=== PATIENT | male | born 1985 | race Caucasian/White ===

== ENCOUNTER 2018-11-12 07:14 | Day surgery (SDC) | payer OTHER ==
[2018-11-10 15:42] LABS: BASOPHILS % (AUTO) 0.4 % (0-1); EOSINOPHILS # (AUTO) 0.4 X10'3 (0-0.9); EOSINOPHILS % (AUTO) 3.4 % (0-6); LYMPHOCYTES # (AUTO) 2.6 X10'3 (1.1-4.8); LYMPHOCYTES % (AUTO) 24.1 % (21-51); MEAN CORPUSCULAR HEMOGLOBIN 30.4 PG (27.0-31.0); MEAN CORPUSCULAR HGB CONC 33.2 g/dL (33.0-36.5); MEAN CORPUSCULAR VOLUME 91.4 FL (78-98); MEAN PLATELET VOLUME 9.9 FL (7.4-10.4); MONOCYTES # (AUTO) 0.8 X10'3 (0-0.9); MONOCYTES % (AUTO) 7.3 % (2-12); NEUTROPHILS % (AUTO) 64.8 % (42-75); PRE OP HEMATOCRIT 47.5 % (42.0-52.0); PRE OP HEMOGLOBIN 15.8 g/dL (14.0-17.9); PRE OP PLATELET COUNT 210 X10'3 (140-440); RED CELL DISTRIBUTION WIDTH 13.4 % (11.5-14.5)
[2018-11-10 15:47] LABS: ALBUMIN 4.2 G/DL (3.4-5.0); ALBUMIN/GLOBULIN RATIO 1.2 (1.1-1.5); ALKALINE PHOSPHATASE 83 IU/L (46-116); BLOOD UREA NITROGEN 10 MG/DL (7-18); BUN/CREATININE RATIO 12.2 (5.4-32.0); CALCIUM 9.5 MG/DL (8.5-10.1); CHLORIDE 105 MMOL/L (99-107); CREATININE 0.82 MG/DL (0.60-1.10); PRE OP ALT 19 U/L (30-65); PRE OP ANION GAP 10 (8-16); PRE OP AST 16 U/L (10-37); PRE OP BILIRUB, TOTAL 0.2 MG/DL (0.0-1.0); PRE OP GLUCOSE 85 MG/DL (70-104); PRE OP POTASSIUM 4.1 MMOL/L (3.4-5.1); PRE OP SODIUM 143 MMOL/L (135-145); TOTAL CARBON DIOXIDE 28.5 MMOL/L (24-32); TOTAL PROTEIN 7.7 G/DL (6.4-8.2); eGFR > 90 ML/MIN
[~2018-11-12] VITALS: Ht 182.9 cm; Wt 69.4 kg
[2018-11-12] VITALS (18 sets, daily range): BP systolic 108–156; BP diastolic 64–81
[~2018-11-12 07:14] MED LIST: NO HOME MEDS; cefazolin/dext.iso 2gm/50ml 50 ML IV ONE; famotidine 20mg tablet PO ONE; ringers solution, lacted 1,000 ML IV SCH
[2018-11-12] MEDS ORDERED: ceFAZolin 1000mg inj ONE (09:56)
[2018-11-12] MEDS ORDERED: BUPIVAcaine/PF 2.5mg/ml (0.25%) 10ml vial ONE (09:56)
[2018-11-12] MEDS ORDERED: ringers solution, lacted 1,000 ML IV SCH (10:03)
[2018-11-12] MEDS ORDERED: meperidine/PF 25mg/ml syringe IV PRN ×3 (10:05)
[2018-11-12] MEDS ORDERED: ondansetron/PF 4mg/2ml inj IV PRN (10:05)
[2018-11-12] MEDS ORDERED: morphine 4 MG/ML inj SYRINge IV PRN ×2 (10:05)
[2018-11-12] MEDS ORDERED: proCHLORperazine 10 MG/2 ml inj IV PRN (10:05)
[2018-11-12] MEDS ORDERED: sevoflurane 250ml liquid IH ONE (10:30)
[2018-11-12] MEDS ORDERED: midazolam 2 mg/2 ml injection ONE (10:31)
[2018-11-12] MEDS ORDERED: fentaNYL /PF 50mcg/ml 5ml ampule ONE (10:31)
[2018-11-12] MEDS ORDERED: rocuronium 10mg/ml inj IV ONE (10:31)
[2018-11-12] MEDS ORDERED: LIDOcaine 2% (20mg/ml) 5ml vial ONE (10:42)
[2018-11-12] MEDS ORDERED: propofol inj 20 ML IV ONE (10:42)
--- NOTE | 2018-11-12 11:33 | NUR ---
Received from OR via [facility] , accompanied by Anesthesiologist YARITZA and report given by Anesthesiolgist. PATIENT WITH VSS. NON VERBAL PAIN SCALE OF 0 AT THIS TIME. 2 LOW ABDOMINAL BANDAIDS PRESENT AND ARE CDI. 20G PIV IN LEFT UE RUNNING LR AT 100. PATIENT WTIH VSS AT THIS TIME. Addendum: 11/12/18 at 1202 by See Betancur RN, RN Amended: Links added.
[2018-11-12] MEDS ORDERED: dexamethasone sod phosphate 4mg/ml inj. ONE (12:01)
[2018-11-12] MEDS ORDERED: ondansetron/PF 4mg/2ml inj ONE (12:01)
[2018-11-12] MEDS ORDERED: glycopyrrolate 0.2mg/ml inj ONE (12:01)
[2018-11-12] MEDS ORDERED: neostigmine methylsulfate 1 MG/ML 10ml vial ONE (12:01)
--- NOTE | 2018-11-12 13:23 | NUR ---
Report called to receiving nurse. Transferred via [facility] WITH ALL Belongings . Special Issues communicated to receiving nurse ALONA VANG. VSS. WITH PATIENT. ALL QUESTIONS ANSWERED AND PATIENT CARE TURNED OVER TO CIERA SAGE. PATIENT STATES 3-10 PAIN. Addendum: 11/12/18 at 1332 by See Betancur RN, RN Amended: Links added.
--- NOTE | 2018-11-12 14:50 | NUR ---
PT UP TO THE BATHROOM X2 NO VOID OF YET. PT TAKING PO FLUIDS VERY WELL. PAIN CONTROLLED. BLADDER SCAN = 260ML. ADVISED PT OF POSSIBILITY OF GOING HOME WITH F/C IF HE IS UNABLE TO VOID.
--- NOTE | 2018-11-12 15:23 | NUR ---
PT VOIDED QS. PT ALREADY HAD DRESSED HIMSELF IV DC'D. TO POV VIA WC FOR DC HOME
== END 2018-11-12 15:23 | disposition home or self-care (01) ==
LOC: PAS 07:14
PROVIDERS: ATTEND Surgery
DX: K40.90 Unilateral inguinal hernia, without obstruction or gangrene, not specified as recurrent (principal); F41.9 Anxiety disorder, unspecified; F17.210 Nicotine dependence, cigarettes, uncomplicated; Z80.9 Family history of malignant neoplasm, unspecified
CPT/HCPCS: 36415; 49650; 71045; 80053; 82948; 85025; A6258; C1781; J0690; J1100; J2001; J2175; J2250; J2405; J2704; J2710; J3010; J3490; J7120; A4315; C1727

== ENCOUNTER 2024-06-03 15:51 | Inpatient (IN) | payer BC, MEDICAID, OTHER ==
[~2024-06-03] VITALS: Ht 182.9 cm; Wt 76.3 kg
[~2024-06-03 15:51] MED LIST changes: -cefazolin/dext.iso 2gm/50ml 50 ML IV ONE; -famotidine 20mg tablet PO ONE; -ringers solution, lacted 1,000 ML IV SCH
[2024-06-03 16:36] LABS: BASOPHILS # (AUTO) 0.1 X10'3 (0-0.2); LYMPHOCYTES # (AUTO) 2.9 X10'3 (1.1-4.8); LYMPHOCYTES % (AUTO) 31.4 % (21-51); MONOCYTES # (AUTO) 0.6 X10'3 (0-0.9)
[2024-06-03 16:38] LABS: BASOPHILS % (AUTO) 0.9 % (0-1); EOSINOPHILS # (AUTO) 0.3 X10'3 (0-0.9); EOSINOPHILS % (AUTO) 3.5 % (0-6); HEMATOCRIT 45.5 % (42.0-52.0); MEAN CORPUSCULAR HEMOGLOBIN 30.7 PG (27.0-31.0); MEAN CORPUSCULAR VOLUME 93.1 FL (78-98); MEAN PLATELET VOLUME 9.6 FL (7.4-10.4); MONOCYTES % (AUTO) 6.2 % (2-12); NEUTROPHILS # (AUTO) 5.3 X10'3 (1.8-7.7); PLATELET COUNT 213 X10'3 (140-440); RED BLOOD COUNT 4.89 X10'6 (4.70-6.10); RED CELL DISTRIBUTION WIDTH 14.4 % (11.5-14.5); WHITE BLOOD COUNT 9.2 X10'3 (4.5-11.0)
[2024-06-03 16:58] LABS: BILIRUBIN,URINE NEGATIVE (Neg); CLARITY,URINE CLEAR (Clear); COLOR,URINE YELLOW (Yellow); GLUCOSE, URINE NEGATIVE (Neg); KETONES,URINE NEGATIVE (Neg); LEUKOCYTE ESTERASE ,URINE NEGATIVE (Neg); NITRITES, URINE NEGATIVE (Neg); OCCULT BLOOD,URINE NEGATIVE (Neg); PROTEIN,URINE NEGATIVE (Neg); UROBILINOGEN,URINE 0.2 E.U/dL (0.2-1.0)
[2024-06-03 17:00] LABS: URINE AMPHETAMINE SCREEN NEGATIVE (Neg); URINE BARBITUATE SCREEN NEGATIVE (Neg); URINE BENZODIAZEPINES SCREEN NEGATIVE (Neg); URINE CANNABINOID SCREEN NEGATIVE (Neg); URINE COCAINE SCREEN NEGATIVE (Neg); URINE METHADONE SCREEN NEGATIVE (Neg); URINE OPIATE SCREEN NEGATIVE (Neg); URINE PHENCYCLIDINE SCREEN NEGATIVE (Neg)
[2024-06-03 17:00] LABS: ALBUMIN 4.2 G/DL (3.4-5.0); ANION GAP 12 (8-16); BLOOD UREA NITROGEN 9 MG/DL (7-18); BUN/CREATININE RATIO 11.7 (10.0-20.0); CALCIUM 8.7 MG/DL (8.5-10.1); CHLORIDE 111 MMOL/L (99-107); CREATININE 0.77 MG/DL (0.60-1.10); ETHANOL 148 MG/DL (<10); GLUCOSE 98 MG/DL (70-104); POTASSIUM 3.5 MMOL/L (3.5-5.1); SODIUM 146 MMOL/L (135-145); THYROID STIMULATING HORMONE 1.17 ulU/ml (0.34-4.50); TOTAL CARBON DIOXIDE 22.7 MMOL/L (24-32); eCRCL 128 ML/MIN; eGFR > 90 ML/MIN
[2024-06-03 17:03] LABS: UA COLLECTION TYPE NON-SPECIFIED
[2024-06-03] MEDS: nicotine 14mg patch - 24hr TD ONE (19:48)
[2024-06-04] MEDS ORDERED: mag hydrox/Alum hydrox/simeth 30ml oral suspension PO PRN (11:35)
[2024-06-04] MEDS ORDERED: acetaminophen 325mg tablet PO PRN (11:35)
[2024-06-04] MEDS ORDERED: magnesium hydroxide 30ml (MOM) UD suspension PO PRN (11:35)
[2024-06-04] MEDS ORDERED: loperamide 2mg capsule PO PRN (11:35)
[2024-06-04] MEDS ORDERED: NICOTINE POLACRILEX 2 MG LOZENGE BC PRN (12:30)
[2024-06-04] MEDS: nicotine 14mg patch - 24hr TD SCH (12:30)
[2024-06-04 13:14] LABS: ALANINE AMINOTRANSFERASE 23 U/L (12-78); ALBUMIN 3.9 G/DL (3.4-5.0); ALBUMIN/GLOBULIN RATIO 1.3 (1.1-1.5); ALKALINE PHOSPHATASE 57 IU/L (46-116); ASPARTATE AMINO TRANSFERASE 20 U/L (10-37); BILIRUBIN,DIRECT 0.1 MG/DL (0-0.3); BILIRUBIN,TOTAL 0.5 MG/DL (0.1-1.0)
[2024-06-04 14:06] VITALS: BP 124/78; PULSE 80; RESP 16; TEMP 98.3; O2SAT 98
[2024-06-04] MEDS: acetaminophen 325mg tablet PO PRN (17:05)
[2024-06-04 19:00] VITALS: RESP 16; O2SAT 98
[2024-06-04] MEDS: naltrexone 50mg tablet PO SCH (19:15)
[2024-06-04 20:00] VITALS: BP 124/78; PULSE 61; RESP 16; TEMP 97.8; O2SAT 98
[2024-06-04] MEDS: ESCITALOPRAM 10 mg tablet 10 MG TABLET PO SCH (22:34)
[2024-06-04] MEDS: naltrexone 50mg tablet PO ONE (23:50)
[2024-06-05] MEDS: temazepam 15mg capsule PO ONE (02:03)
[2024-06-05 06:47] LABS: CHOL/HDL RATIO 3.8 (0.00-4.99); CHOLESTEROL 155 MG/DL (0-200); HDL CHOLESTEROL 41 MG/DL (35-60); HEMOGLOBIN A1C 5.2 % (4.5-6.2); LDL CHOLESTEROL 85 MG/DL (50-100); TRIGLYCERIDES 224 MG/DL (20-135)
[2024-06-05 07:11] VITALS: RESP 16; O2SAT 98
[2024-06-05 08:00] VITALS: BP 114/76; PULSE 75; RESP 12; TEMP 97.4; O2SAT 99
[2024-06-05 19:00] VITALS: RESP 16; O2SAT 99
[2024-06-05 20:00] VITALS: BP 116/78; PULSE 64; RESP 16; TEMP 96.9; O2SAT 99
[2024-06-06 07:06] VITALS: RESP 16; O2SAT 98
[2024-06-06] MEDS: ibuprofen tablet 400 MG TABLET PO PRN (07:26)
[2024-06-06 08:00] VITALS: BP 112/81; PULSE 60; RESP 14; TEMP 97.8; O2SAT 99
[2024-06-06] MEDS ORDERED: ESCI-8 PO (14:01)
[2024-06-06] MEDS ORDERED: NALT50TA5 PO (14:01)
== END 2024-06-06 15:11 | disposition home or self-care (01) | DRG 751 ==
LOC: ER 15:51 → ED HOLD 06-04 08:33 → ADULT MH 06-04 11:23
PROVIDERS: ADMIT Psychiatry & Neurology Psychiatry; ATTEND Psychiatry & Neurology Psychiatry
DX: F32.2 Major depressive disorder, single episode, severe without psychotic features (principal); R45.851 Suicidal ideations; F10.20 Alcohol dependence, uncomplicated; F19.10 Other psychoactive substance abuse, uncomplicated; Z20.822 Contact with and (suspected) exposure to COVID-19
CPT/HCPCS: 36415; 80048; 80061; 80076; 80305; 80320; 81003; 83036; 84443; 85025; 87081; 87811; 99285